=== PATIENT | female | born 1980 | race African-American/Black ===

== ENCOUNTER 2017-01-16 16:54 | Outpatient (CLI) | payer OTHER, SELFPAY ==
[2017-01-16 17:22] LABS: #Basophils 0.2 thou/uL (0.0-0.2); #Eosinphils 0.2 thou/uL (0.0-0.7); #Lymphocytes 3.3 thou/uL (1.20-3.40); #Neutrophils 8.8 thou/uL (1.40-6.50); %Basophils 1.5 % (0.0-1.0); %Eosinophils 1.1 % (0.0-10.0); %Lymphocytes 24.2 % (21.0-51.0); %Monocytes 7.4 % (0.0-10.0); %Neutrophils 65.8 % (42.0-75.0); Hemoglobin 9.4 g/dL (12.0-16.0); Mean Corpuscular HGB CONC 31.9 g/dL (32.0-36.0); Mean Corpuscular Hemoglobin 26.3 pg (27.0-31.0); Mean Corpuscular Volume 82.5 fl (81.0-99.0); Mean Platelet Volume 10.6 fL (7.4-10.4); Platelet Count 234 thou/uL (130-400); RBC Distribution Width 18.1 % (11.5-14.5); Red Blood Cell (RBC) Count 3.56 mill/uL (4.20-5.40); White Blood Cell (WBC) Count 13.4 thou/uL (4.8-10.8)
[2017-01-16 17:26] LABS: INR-International Normal Ratio 0.9; PTT 27.6 SEC (22.9-36.1); Prothrombin Time 12.9 SEC (12.0-14.7)
[2017-01-16 17:36] LABS: ALT (SGPT) 59 U/L (8-55); AST (SGOT) 39 U/L (5-34); Albumin 3.2 g/dL (3.5-5.0); Alkaline Phosphatase 280 U/L (40-150); Anion Gap 13 mmol/L (10-20); BUN (Urea Nitrogen) 6 mg/dL (7.0-18.7); Bilirubin, Total 0.8 mg/dL (0.2-1.2); Calc. Creatinine Clearance 0 mL/min (70-130); Calcium 8.8 mg/dL (7.8-10.44); Carbon Dioxide 23 mmol/L (22-29); Chloride 106 mmol/L (98-107); Estimated GFR-MDRD 72; Globulin 3.9 g/dL (2.4-3.5); Glucose 112 mg/dL (70-105); Potassium 4.1 mmol/L (3.5-5.1); Protein, Total 7.1 g/dL (6.0-8.3); Sodium 138 mmol/L (136-145)
--- NOTE | 2017-01-16 18:07 | RAD ---
SUPINE AND UPRIGHT VIEWS ABDOMEN: 01/16/17 HISTORY: No bowel movement since 01/14. Patient has had a recent . Supine and upright views of the abdomen is obtained. A moderate amount of stool is seen in the colon. No evidence of bowel obstruction or ileus seen. No dilated loops of bowel seen. IMPRESSION: Moderate amount of stool in the colon. POS: [facility]
[2017-01-17 16:53] LABS: Iron 90 ug/dL (50-170); Iron Binding Capacity, Total 431 mcg/dL (265-497)
== END 2017-01-16 16:55 | disposition home or self-care (01) ==
LOC: MADLABBHPM 16:54
PROVIDERS: ATTEND Family Medicine
DX: M31.1 Thrombotic microangiopathy (principal); K59.09 Other constipation
CPT/HCPCS: 36415; 74020; 80053; 82728; 83540; 83550; 85025; 85610; 85730

== ENCOUNTER 2017-02-04 07:56 | Outpatient (CLI) | payer OTHER ==
--- NOTE | 2017-02-04 10:09 | ULT ---
ABDOMINAL ULTRASOUND: Date: 02/04/17 HISTORY: Right upper quadrant pain since last Saturday. Nausea and vomiting. COMPARISON: None. TECHNIQUE: Utilizing multihertz transducer, sonographic imaging of the right upper quadrant is performed in the longitudinal and transverse plane. FINDINGS: The head and body of the pancreas have a normal echotexture. The pancreatic tail is obscured. Visualized aorta and inferior vena cava have a normal caliber. Hepatic parenchyma has a normal echotexture. No hepatic masses or intrahepatic biliary dilatation. C ontour of the hepatic margin is maintained. No sonographic evidence of cholelithiasis, gallbladder wall thickening, or pericholecystic fluid. Kristopher rene, lens mounter does report a positive Vann's sign. Left and right kidney have an overall normal echotexture. No hydronephrosis. Left kidney measures 9 .8 x 5.9 x 5.3 cm. Right kidney measures 9.8 x 5.5 x 4.1 cm. Spleen has a normal echotexture measuring 8.5 cm in maximum dimension. Common bile duct is not appre ciated. IMPRESSION: No sonographic evidence of cholelithiasis. However, lens mounter reports a positive Vann's sign. If there is concern for acalculous cholecystitis, consider HIDA scan. POS: [facility]
== END 2017-02-04 07:57 | disposition home or self-care (01) ==
LOC: MADULT 07:56
PROVIDERS: ATTEND Family Medicine
DX: R10.11 Right upper quadrant pain (principal)
CPT/HCPCS: 76700